=== PATIENT | female | born 2000 | race Caucasian/White ===

== ENCOUNTER → 2023-07-26 | Outpatient (CLI) | payer MEDICAID ==
--- NOTE | 2023-07-27 05:07 | MR ---
EXAMINATION TYPE: MR knee RT wo con DATE OF EXAM: 07/26/2023 COMPARISON: NONE HISTORY: Right knee pain, hx new on Chronic injury. Internal derangement. TECHNIQUE: Multiplanar, multisequence images of the knee is performed without IV contrast. FINDINGS: MEDIAL MENISCUS: Small area of increased signal medial aspect medial does not definitively extend to articular surface centered in the posterior body sagittal image 8 and coronal image 21. LATERAL MENISCUS: Anterior and posterior horns are intact without tear. CRUCIATE LIGAMENTS: The anterior and posterior cruciate ligaments are intact and unremarkable. COLLATERAL LIGAMENTS: The medial collateral ligament and lateral collateral ligament complex are inta ct and unremarkable. EXTENSOR MECHANISM: Visualized quadriceps and patellar tendons are intact. EFFUSION: Large size suprapatellar joint effusion. POPLITEAL CYST: No popliteal/ta cyst. TRICOMPARTMENT SPACES: Tricompartment joint spaces are preserved. No significant spurring is seen. CARTILAGE: Tricompartmental articular cartilage is maintained. BONE MARROW SIGNAL: Heterogeneous increased T2 signal involving the anterior aspect of the distal lat eral femoral condyle and metaphysis with more focal diminished T1 signal along the anterior distal la teral aspect. Area of concern measures approximately 4.1 cm AP diameter by 4.3 cm transversely by 5.4 cm craniocaudal diameter. No serpiginous or linear diminished T1 signal noted. OTHER: No additional significant abnormality is appreciated. IMPRESSION: 1. Fairly large area of abnormal bone marrow edema/osseous contusion injury involving the anterior la teral aspect of the distal lateral femoral condyle and metaphysis as detailed above. 2. Large size suprapatellar joint effusion. 3. Possible subtle intrasubstance tear posterior horn of medial meniscus. No full thickness meniscal or ligamentous tear is identified.
== END | disposition home or self-care (01) ==
LOC: RADMRIMAIN 07-25 21:45
PROVIDERS: ATTEND Orthopaedic Surgery
DX: M25.461 Effusion, right knee (principal); M23.321 Other meniscus derangements, posterior horn of medial meniscus, right knee; M23.8X1 Other internal derangements of right knee; R60.0 Localized edema